=== PATIENT | male | born 1960 | race Caucasian/White ===

== ENCOUNTER 2023-04-11 13:25 | Emergency (ER) | payer MEDICARE ==
[~2023-04-11] VITALS: Ht 170.2 cm; Wt 79.4 kg
[~2023-04-11 13:25] MED LIST: ALPR.5; AMLO10; DULO30; FLUSAL2505; HYDCHL25; OXYC10TA19; PRED20; Percocet 10-321 EACH PO
[2023-04-11] MEDS ORDERED: BUPRENORPHIN-N1 EAC1 SL (15:19)
[2023-04-11 15:45] VITALS: BP 128/89
[2023-04-11] MEDS ORDERED: Ventolin/Prove6.7 GM INH (21:40)
[2023-04-11] MEDS ORDERED: ESCI20 PO (21:40)
[2023-04-11] MEDS ORDERED: Methocarbamol500 MG PO (21:41)
== END 2023-04-11 15:55 | disposition home or self-care (01) ==
LOC: ER 13:25
DX: R45.851 Suicidal ideations (principal); F11.23 Opioid dependence with withdrawal; F10.129 Alcohol abuse with intoxication, unspecified; Z79.899 Other long term (current) drug therapy; Z88.6 Allergy status to analgesic agent
CPT/HCPCS: 99284